=== PATIENT | female | born 1975 | race Caucasian/White ===

== ENCOUNTER 2016-08-16 08:34 | Emergency (ER) | payer SELFPAY ==
--- NOTE | ~2016-08-16 | ER ---
PATIENT'S NAME: BESSY SHEPPARD [facility] AGE: 40 Y [address] ROOM: [place] [address] LOCATION: ED ADMIT DATE: 08/16/2016 ER/Outpatient Report DISCHARGE DATE: 08/16/2016 FAMILY PHYSICIAN: PHYSICIAN, NO ATTENDING PHYSICIAN: Teto Farias CHIEF COMPLAINT: Sore throat. HISTORY OF PRESENT ILLNESS: The patient states that for the last 3 to 4 days she has had left-sided throat discomfort and swelling with difficulty and painful swallowing. She has been taking ctoj-qbk-wbgynak remedies for the same including Chloraseptic sprays. She does have a history of tonsillectomy. She denies any others known sick contacts. PAST MEDICAL HISTORY: Documented on the record and reviewed by me. SOCIAL HISTORY: Documented on the record and reviewed by me. MEDICATIONS: Documented on the record and reviewed by me. ALLERGIES: DOCUMENTED ON THE RECORD AND REVIEWED BY ME. REVIEW OF SYSTEMS: All systems reviewed and negative except as noted in the HPI. PHYSICAL EXAMINATION: VITAL SIGNS: Blood pressure 165/78, pulse is 82, respiratory rate is 17, temp is 98, SpO2 is 94% on room air. Pain is rated at 6/10. GENERAL: Age-appropriate female, in no obvious pain or distress, sitting upright on the exam table. NEUROLOGIC: Awake and alert. GCS is 15. No focal deficits. No asymmetry. HEENT: Normocephalic, atraumatic. The eyes are PERRL. The oropharynx is erythematous without exudates. Tonsils are absent. The tongue is normal. No fullness to the floor of the mouth. There is left-sided cervical adenopathy. No erythema appreciated. The nasal mucosa is slightly boggy, but not injected. HEART: Regular rate and rhythm with no murmurs. LUNGS: Clear to auscultation bilaterally. No rhonchi, wheezes, or rales. ABDOMEN: Soft, nontender, and nondistended. No rebound or guarding. PATIENT'S NAME: BESSY SHEPPARD [facility] AGE: 40 Y [address] ROOM: [place] [address] LOCATION: [facility] ADMIT DATE: 08/16/2016 ER/Outpatient Report DISCHARGE DATE: 08/16/2016 FAMILY PHYSICIAN: PHYSICIAN, NO ATTENDING PHYSICIAN: Teto Farias BACK: Nontender to palpation throughout. No CVA tenderness. EXTREMITIES: Warm and well perfused. SKIN: Warm, dry, and intact. LABORATORY DATA AND X-RAYS: Rapid strep is negative. IMPRESSION: Pharyngitis, likely viral. EMERGENCY DEPARTMENT COURSE: The patient was seen and evaluated. Presentation is not consistent with René's angina or Lhermitte syndrome. No evidence of peritonsillar abscess. Strep culture is pending. We will treat the patient with ciid-ufg-wdrnfgt remedies and add Medrol Dosepak for now to help with the pharyngitis, and I did give her a prescription for amoxicillin to be filled if she spikes a fever or if the culture comes back indicative of strep. The patient was amenable and discharged in good condition. MD ARLETH VENEGAS/concepcion /[id number] d: 08/16/163 t: 09/04/16 0851, OUTPATIENT REPORT
== END 2016-08-16 10:32 | disposition disaster alternative care site (69) ==
LOC: GMED 08:34
DX: J02.9 Acute pharyngitis, unspecified (principal)